=== PATIENT | male | born 2000 | race African-American/Black ===

== ENCOUNTER 2024-02-21 00:51 | Emergency (ER) | payer OTHER ==
[~2024-02-21] VITALS: Ht 180.3 cm; Wt 90.3 kg
[2024-02-21] MEDS ORDERED: IBUP80TA PO (01:00)
[2024-02-21] MEDS ORDERED: VENTAER INH (01:00)
[2024-02-21] MEDS: ACETAMINOPHEN TAB 650MG DOSE (2X325MG) PO ONE (01:31)
[2024-02-21] MEDS: IBUPROFEN 600MG TAB PO ONE (01:31)
[2024-02-21 03:46] VITALS: TEMP 98.6
[2024-02-21 06:15] VITALS: BP 121/62; O2SAT 95
== END 2024-02-21 06:27 | disposition home or self-care (01) ==
LOC: M ED 00:51
DX: J09.X2 Influenza due to identified novel influenza A virus with other respiratory manifestations (principal); B34.8 Other viral infections of unspecified site; J45.909 Unspecified asthma, uncomplicated; F17.200 Nicotine dependence, unspecified, uncomplicated; Z79.52 Long term (current) use of systemic steroids; Z79.1 Long term (current) use of non-steroidal anti-inflammatories (NSAID)